=== PATIENT | male | born 1940 | race Caucasian/White ===

== ENCOUNTER 2019-04-25 01:42 | Inpatient (IN) | payer MEDICARE, BC, SELFPAY ==
[2019-04-25] VITALS (15 sets, daily range): BP systolic 129–203; BP diastolic 66–87; PULSE 71–80; RESP 16–18; TEMP 36.2–37.4; O2SAT 93–100; BMI 23.5; BMI 23.7
--- NOTE | 2019-04-25 02:03 | CT_ITS ---
STUDY: CT ABDOMEN AND PELVIS WITHOUT CONTRAST REASON FOR EXAM: Male, 78 years old. Right flank pain. Known kidney stones which were found on Tuesday. Patient is scheduled for surgery on 05/09/2019. RADIATION DOSAGE (If Supplied By Facility): CTDIvol = ( 6.08 ) mGy, DLP = ( 299.27 ) mGycm TECHNIQUE: Transaxial images were obtained from the dome of the diaphragm to the symphysis pubis without oral contrast, and without intravenous contrast. Sagittal and coronal images were reconstructed. Individualized dose optimization techniques were used for this CT. COMPARISON: None. No previous studies or reports of previous studies are available for comparison at the time of this reading. FINDINGS: There is mild atelectasis in the visualized posterior lung bases. The visualized portions of the heart are within normal limits. There are sternotomy wires and surgical clips suggesting previous CABG. Normal liver. Normal gallbladder and extrahepatic biliary system. Normal spleen. Normal pancreas. Normal bilateral adrenal glands. As seen on axial images 141-143, there is a 4 mm wide distal right femoral calculus at the ureterovesical junction. There is associated right perinephric and right periureteral fat infiltration. There appears to be prominent peripelvic cysts in the right kidney. I suspect that mild or moderate hydronephrosis is present, however, presence of the cysts prevents reliable assessment for hydronephrosis. Comparison studies or delayed contrast-enhanced images would be necessary to reliably assess hydronephrosis in this patient. There are 2 nonobstructive right lower pole renal calculi, the larger of which measures 3 mm. There are prominent peripelvic cysts in the left kidney. There is no demonstrated left renal or ureteral calculus. Hydronephrosis left kidney is thought to be unlikely but cannot be entirely excluded. There is a small hiatal hernia. Normal small intestine. There is prominent colonic and rectal feces which may represent constipation. The appendix is visualized on axial images 103-113 and it appears normal. There is diffuse atherosclerotic calcification of the abdominal aorta, without a demonstrated aneurysm. Normal inferior vena cava. There is no demonstrated retroperitoneal lymphadenopathy. There is a 1.1 cm urinary bladder calculus. Prostate gland is enlarged and indents the base of the urinary bladder. Otherwise, normal appearing bladder. There is a small umbilical hernia containing fat but no bowel. There are mild degenerative changes of the visualized lumbar spine. CT/Abdomen/Pelvis without Cont IMPRESSION: 4 mm wide distal right ureteral calculus at the UVJ. There is right perinephric fat infiltration and I suspect that there is mild or moderate hydronephrosis of the right kidney. Reliable assessment of hydronephrosis cannot be made in this noncontrast study due to presence of peripelvic cysts. Small nonobstructive right lower pole renal calculi. 1.1 cm urinary bladder calculus. Enlarged prostate. Small hiatal hernia. Atherosclerosis. Suggestion of constipation. No evidence for appendicitis or diverticulitis. Electronically Signed: Jhonatan Obregon MD at 3:00 EST , Service support ,
--- NOTE | 2019-04-25 02:05 | ED.DCSUM_ITS ---
History of Present Illness Chief Complaint: Abd Pain Narrative: Patient is a 78-year-old male who presents with severe right flank and right lower quadrant abdominal pain. He rates this as 13 out of 10. His pain initially began Tuesday morning. He was seen at [facility] emergency department at that time and diagnosed with a distal right ureteral calculus. He was prescribed etodolac and had hydrocodone at home. He was advised to follow-up with Dr. Baron- urology. He did follow-up as an outpatient. His pain was controlled at that time. He was scheduled for surgery on May 09. However he developed recurrent abdominal pain yesterday afternoon which that improved but returned severely about an hour ago. He reports nausea without vomiting. No fevers. No dysuria. Past Medical History - Allergies and Home Meds Allergies/Adverse Reactions: Allergies No Known Allergies Allergy (Verified 04/25/19 01:53) Primary Care Physician: Ciro Townsend, [employer] DATA ANALYST-C [Primary Care Provider] - Past Medical History: - - Coronary artery disease Surgical History: coronary bypass surgery Smoking Status: Never smoker Review of Systems All systems negative except as indicated General: Denies: Fever Eyes: Denies: Visual changes - bilaterally ENT: Denies: Bilateral ear pain Cardiovascular: Denies: Chest pain Respiratory: Denies: Dyspnea Gastrointestinal: Reports: Abdominal pain, Nausea. Denies: Vomiting Genitourinary: Denies: Dysuria Musculoskeletal: Denies: Myalgias Skin: Denies: Rash Neurological: Denies: Headache Allergy: Denies: Uticaria Physical Exam Vital Signs/Narrative: Vital Signs Temp Pulse Resp BP Pulse Ox 04/25/19 01:45 97.7 F L 71 16 203/87 H 100 Inital Vital Signs reviewed: Yes General: Well nourished, Acute Distress Head: Normocephalic Eyes: EOMI ENT: Moist mucous membranes Neck: Supple Cardiovascular: Regular rate, Regular rhythm Respiratory: No distress, CTA bilaterally Abdomen: Soft, Tender - Right lower quadrant/right flank/right CVA tenderness Back: CVA tenderness Extremities: Nontender Skin: Normal color Neurological: Alert Psychological: Normal affect Diagnostic/Tx/Re-eval - Medical Decision Making Family did bring a copy of the CT report which showed a 5 mm distal right ureteral calculus as well as right nephrolithiasis. Patient was symptomatically treated with fluids, Toradol, morphine, Zofran. On reevaluation the patient has moderate reduction of his pain to 5 out of 10. He is concerned if he goes home his pain will again be uncontrolled. Laboratory studies and imaging as above notable for distal right ureteral calculus and probably mild to moderate hydronephrosis although limited due to the presence of peripelvic renal cysts. Urinalysis shows ketones and RBCs. I did speak to urology who agrees to admit with plan for intervention. ED Disposition - Plan for ED Patient: Disposition: Acute Care Hospital [facility] Diagnosis: Ureterolithiasis Referrals: Ciro Townsend, SAP DATA ANALYST-C [Primary Care Provider] -
[2019-04-25] MEDS: 0.9% Normal Saline 1,000 ML 999 ML IV (02:16)
[2019-04-25] MEDS: Ondansetron 4 MG/2 ML Vial IV (02:17)
[2019-04-25] MEDS: Ketorolac 30 MG/ML Syringe 15 MG IV (02:17)
[2019-04-25] MEDS: Morphine 4 MG/ML Syringe IV (02:19)
[2019-04-25 02:29] LABS: Absolute Lymphocyte Count 0.73 X10^3/uL (0.83-4.51); Absolute Neutrophil Count 6.3 X10^3/uL (2.0-7.7); Basophil# 0.02 X10^3/uL; Basophil% 0.3 % (0-1); Eosinophil# 0.08 X10^3/uL; Hemoglobin 13.9 g/dL (13.0-16.5); Lymphocyte # 0.73 X10^3/ul (4.0); Lymphocyte % 9.3 % (19-41); Mean Corp Hgb Conc 33.9 g/dL (32-36); Mean Corpuscular Hgb 32.3 pg (27.0-32.0); Mean Corpuscular Volume 95.1 fL (80-94); Mean Platelet Vol. 8.9 fl (6.2-12.0); Monocyte# 0.74 X10^3/uL; Monocyte% 9.4 % (0-10); NRBC Flagged by Analyzer 0 % (0-5); Neutrophil % 79.7 % (47-70); Platelet Count 124 K/mm3 (150-450); RBC Distribution Width CV 12.2 % (11.6-14.6); RBC Distribution Width SD 42.7 fl (35.1-43.9); Red Blood Count 4.31 M/mm3 (4.6-6.2); White Blood Count 7.9 K/mm3 (4.4-11.0)
[2019-04-25 02:51] LABS: Color, Urine Yellow (Yellow); Glucose, Dipstick 50 mg/dl (Normal); Leukocyte Esterase-Dipstick Negative /ul (Negative); Nitrite-Dipstick Negative (Negative); Occult Blood-Urine 50 /ul (Negative); Protein-Dipstick Negative (Negative); Squamous Epithelial Cells - UA 0 SEEN /hpf (0-5); Urine Bilirubin Dipstick Negative (Negative); Urine Clarity Clear (Clear); Urine Urobilinogen 1 mg/dl (Normal); Urine pH 6.5 (5.0 - 8.0); White Blood Cells 0 SEEN /hpf (0-5)
[2019-04-25 02:59] LABS: Ketone-Dipstick 150 mg/dl (Negative)
[2019-04-25 03:00] LABS: Bacteria RARE /hpf (None Seen); Mucous, Urine RARE /hpf (<or=2+); Red Blood Cells-Urine 5-10 SEEN /hpf (0-5)
--- NOTE | 2019-04-25 03:00 | ED.RN ---
lab called urine ketones of 150. dr. donohue made aware.
[2019-04-25 03:03] LABS: Anion Gap 8 (5-15); BUN 30 mg/dL (7-18); BUN/Creat Ratio 24.2 RATIO (10-20); Calcium,Total 8.7 mg/dL (8.5-10.1); Chloride 107 mmol/L (98-107); Creatinine, Serum 1.24 mg/dL (0.70-1.30); EST Glomerular Filtration Rate 60 mL/min (>60); Est Glom Filt Rate - Afr Amer 72 mL/min (>60); Estimated Creatinine Clearance 46.73 ml/min; Glucose 119 mg/dL (74-106); Potassium 3.9 mmol/L (3.5-5.1); Sodium Level 141 mmol/L (136-145)
[2019-04-25] MEDS: 0.9% Normal Saline 1,000 ML 75 ML IV (04:48)
--- NOTE | 2019-04-25 05:55 | EKG12_ITS ---
Test Reason : AM EKG Blood Pressure : / mmHG Vent. Rate : 070 BPM Atrial Rate : 070 BPM P-R Int : 230 ms QRS Dur : 090 ms QT Int : 422 ms P-R-T Axes : 071 066 048 degrees QTc Int : 455 ms Sinus rhythm with 1st degree A-V block with Premature supraventricular complexes Otherwise normal ECG No previous ECGs available Confirmed by JUSTYNA BILLINGSLEY ([id number]), make up editor MURPHY FANG ([id number]) on 04/27/2019 11:51:40 AM Referred By: PETRONA Confirmed By:JUSTYNA BILLINGSLEY
[2019-04-25 06:36] LABS: Absolute Neutrophil Count 5.5 X10^3/uL (2.0-7.7); Basophil# 0.02 X10^3/uL; Basophil% 0.3 % (0-1); Eosinophil# 0.02 X10^3/uL; Eosinophils% 0.3 % (0-5); Hematocrit 37.7 % (40-54); Hemoglobin 12.5 g/dL (13.0-16.5); Lymphocyte % 8.8 % (19-41); Mean Corp Hgb Conc 33.2 g/dL (32-36); Mean Corpuscular Hgb 31.8 pg (27.0-32.0); Mean Corpuscular Volume 95.9 fL (80-94); Mean Platelet Vol. 9.2 fl (6.2-12.0); Monocyte# 0.62 X10^3/uL; Monocyte% 9.1 % (0-10); NRBC Flagged by Analyzer 0 % (0-5); Neutrophil % 80.9 % (47-70); POSITIVE DIFFERENTIAL YES; Platelet Count 119 K/mm3 (150-450); RBC Distribution Width CV 12.2 % (11.6-14.6); RBC Distribution Width SD 43.2 fl (35.1-43.9); Red Blood Count 3.93 M/mm3 (4.6-6.2); White Blood Count 6.8 K/mm3 (4.4-11.0)
[2019-04-25 06:52] LABS: Anion Gap 5 (5-15); BUN 26 mg/dL (7-18); BUN/Creat Ratio 28.4 RATIO (10-20); Chloride 111 mmol/L (98-107); Creatinine, Serum 0.92 mg/dL (0.70-1.30); EST Glomerular Filtration Rate 85 mL/min (>60); Est Glom Filt Rate - Afr Amer 102 mL/min (>60); Estimated Creatinine Clearance 62.99 ml/min; Glucose 113 mg/dL (74-106); Potassium 4.2 mmol/L (3.5-5.1); Sodium Level 141 mmol/L (136-145)
[2019-04-25 07:18] LABS: Differential Indicated SCAN CRITERIA MET
[2019-04-25 07:19] LABS: Differential Comment SCANNED
--- NOTE | 2019-04-25 07:28 | HP.PCM_ITS ---
History and Physical Date of Admission: 04/25/19 New patient, 78-year-old male relatively healthy recently had severe pain in the right side CAT scan was done at demonstrated a large stone in his bladder and also a 5 mm stone in the distal right ureter. I saw the patient in the office yesterday and we were planning for surgery for his kidney stone and bladder stone he now presents the emergency room with right severe flank pain that was intractable in nature. Patient wishes to be admitted to have the stone resolved surgically so he will be admitted for ureteroscopy and laser of the right ureteral stone and also the bladder stone. Probably could be discharged after the procedure. 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 Tobacco Use Assessment Completed: Used Tobacco in last 30 days? Smoking cessation counseling was provided. Does not use smokeless tobacco. Social Drinker. Does not use drugs. Does not drink caffeine. Has not had a blood transfusion. Patient's occupation is/was retired. REVIEW OF SYSTEMS: Constitutional: Patient denies fever, chills, weight loss, and weight gain. Eyes: Patient reports cataracts. Patient denies blurry vision and glaucoma. Ears, Nose, Mouth, Throat: Patient denies hearing loss, sinus infections, and sleep apnea. Cardiovascular: Patient reports chest pains. Patient denies swollen ankles, irregular heartbeat, and pacemaker/defib. Respiratory: Patient denies shortness of breath, wheezing, oxygen, and cpap machine. Gastrointestinal: Patient denies abdominal pain, diarrhea, constipation, nausea, and vomiting. Genitourinary: Patient reports history of stones. Patient denies painful urination, urinary retention, bedwetting, weak stream/scanty, frequent urinatio n, frequent uti's, leakage of urine, difficulty starting stream, get up at night to void, and blood in the urine. Musculoskeletal: Patient denies sore muscles, back pain, and gout. Integumentary/Skin: Patient reports skin cancer. Patient denies rash and chronic itching. Neurological: Patient denies falling/unsteady, paralysis, and stroke/tia. Hematologic/Lymphatic: Patient denies abnormal bleeding, blood transfusion, swollen lymph nodes, deep venous thrombosis, and pulmonary embolism. VITAL SIGNS: 04/24/2019 09:10 AM Weight 150 lb / 68.04 kg Height 68 in / 172.72 cm BP 132/68 mmHg BMI 22.8 kg/m? - BMI Counseling was provided. PHYSICAL EXAMINATION: Anus and Perineum: No hemorrhoids. No anal stenosis. No rectal fissure, no anal fissure. No edema, no dimple, no perineal tenderness, no anal tenderness. Scrotum: No lesions. No edema. No cysts. No warts. Epididymides: Right: no spermatocele, no masses, no cysts, no tenderness, no induration, no enlargement. Left: no spermatocele, no masses, no cysts, no tenderness, no induration, no enlargement. Testes: No tenderness, no swelling, no enlargement left testes. No tenderness, no swelling, no enlargement right testes. Normal location left testes. Normal location right testes. No mass, no cyst, no varicocele, no hydrocele left testes. No mass, no cyst, no varicocele, no hydrocele right testes. Urethral Meatus: Normal size. No lesion, no wart, no discharge, no polyp. Normal location. Penis: Circumcised, no warts, no cracks. No dorsal Peyronie's plaques, no left corporal Peyronie's plaques, no right corporal Peyronie's plaques, no scarring, no warts. No balanitis, no meatal stenosis. Prostate: Prostate about 50 grams. Left lobe normal consistency, right lobe normal consistency. Symmetrical lobes. No prostate nodule. Left lobe no tenderness, right lobe no tenderness. Seminal Vesicles: Nonpalpable. Sphincter Tone: Normal sphincter. No rectal tenderness. No rectal mass. MULTI-SYSTEM PHYSICAL EXAMINATION: Constitutional: Well-nourished. No physical deformities. Normally developed. Good grooming. Neck: Neck symmetrical, not swollen. Normal tracheal position. Respiratory: No labored breathing, no use of accessory muscles. Cardiovascular: Normal temperature, normal extremity pulses, no swelling, no varicosities. Lymphatic: No enlargement of neck, axillae, groin. Skin: No paleness, no jaundice, no cyanosis. No lesion, no ulcer, no rash. Neurologic / Psychiatric: Oriented to time, oriented to place, oriented to person. No depression, no anxiety, no agitation. Gastrointestinal: No mass, no tenderness, no rigidity, non obese abdomen. Eyes: Normal conjunctivae. Normal eyelids. Ears, Nose, Mouth, and Throat: Left ear no scars, no lesions, no masses. Right ear no scars, no lesions, no masses. Nose no scars, no lesions, no masses. Normal hearing. Normal lips. Musculoskeletal: Normal gait and station of head and neck. PAST DATA REVIEWED: Source Of History: Patient Lab Test Review: PSA Records Review: Previous Patient Records Urine Test Review: Urinalysis PROCEDURES: Urinalysis - [address] Dipstick Dipstick Cont'd Specimen: Voided Blood: about 250 Appearance: Clear pH: 5.0 Color: Yellow Protein: Neg Glucose: Normal Urobilinogen: Neg Bilirubin: Neg Nitrites: Neg Ketones: Neg Leukocyte Esterase: Neg ASSESSMENT: ICD-10 Details 1 : Calculus in bladder - N21.0 2 Benign prostatic hyperplasia with lower urinary tract symptoms - N40.1 3 Calculus of ureter - N20.1 PLAN: Medications New Meds: Flomax 0.4 mg capsule 1 capsule PO Q HS #90 3 Refill(s) Schedule Procedure: Unspecified Date - Cysto Uretero Lithotripsy - 71732, right Procedure: Approximately 2 Weeks - Cysto Bladder Stone >2.5cm - 72162 Document Letter(s): Created for Patient: Clinical Summary Notes: 78-year-old male with a large prostate and a large bladder stone, plan to proceed with surgery with a cystoscopy and laser removal the bladder stone also perform a right ureteroscopy and laser the stone in the distal right ureter.
[2019-04-25] MEDS: 0.45% Normal Saline 1,000 ML 75 ML IV (07:59)
--- NOTE | 2019-04-25 10:30 | CASEMGMT ---
RN CM Face to Face with patient for initial transition planning/care coordination assessment. RN CM introduced self and role at [facility]. Patient lying in bed, alert and oriented, at bedside. Patient willing to participate in assessment and is able to answer all questions appropriately. Care providers, pharmacy, and demographics verified. Patient wishes to discharge home, denies need for home health at this time. Patient states he has no further needs or concerns at this time. CM to follow for discharge planning needs that may arise. PCP: KASSY Townsend Specialists: [employer] Operator Amanda Pharmacy: [facility] Insurance: [employer] Prescription Benefit: yes Living Will/HPOA: yes, Aylin French LNOK: Living Arrangements: Patient lives with in split level home with 5-6 steps with railings. Patient is independent at home. Transportation: self/ DME/HHC: Patient denies need for DME or HHC. Disposition Plan: Patient to discharge home with family support and follow-up plans in place. Sadia CANON, RN, CM
--- NOTE | 2019-04-25 13:52 | NURSING ---
report called to [place] in AC at this time. pt transported down via bed with IV pump and pre-op antibiotic.
--- NOTE | 2019-04-25 14:20 | DCINST_ITS ---
Discharge Diet: Light diet - advance as tolerated Discharge Activity: Return to Normal Activity Call your doctor if you observe: Fever of 101 or Higher Suture Line Care: Avoid Pulling/Pushing, Avoid Pinching/Bending Instructions: Treating Kidney Stones: Ureteroscopic Stone Removal Allergies/Adverse Reactions: Allergies No Known Allergies Allergy (Verified 04/25/19 01:53) Medications to take at Discharge Aspirin 81 mg PO DAILY 04/25/19 Atenolol 0.5 tab PO DAILY 04/25/19 Ciprofloxacin [Cipro] 500 mg PO BID #6 tab 04/25/19 Etodolac 1 tab PO DAILY 04/25/19 Hydrocodone/Acetaminophen [Hydrocodon-Acetaminophen 5-325] 1 ea PO Q6H PRN PRN 04/25/19 Hydrocodone/Acetaminophen [[place] 5-325 Tablet] 1 ea PO Q4H PRN PRN 5 Days #14 tab 04/25/19 Omeprazole 20 mg PO DAILY 04/25/19 Ondansetron [Ondansetron Odt] 1 tab PO TID 04/25/19 Phenazopyridine HCl [Pyridium] 100 mg PO TID #14 tab 04/25/19 Tamsulosin HCl 0.4 mg PO DAILY 04/25/19 The following prescriptions were given: Ciprofloxacin [Cipro] 500 mg PO BID #6 tab Prescription Printed Hydrocodone/Acetaminophen [[place] 5-325 Tablet] 1 ea PO Q4H PRN PRN 5 Days #14 tab PRN Reason: Pain Score 1-10/10 Prescription Printed Phenazopyridine HCl [Pyridium] 100 mg PO TID #14 tab Prescription Printed Primary Care Physician: Ciro Townsend, [employer]-C [Primary Care Provider] - Test Results: Test results from this visit will be discussed in further detail at your follow- up appointment, if applicable. Please Follow Up With: Derian Baron MD When: please call to make an appointment.
[2019-04-25] MEDS: Cefazolin 2 GM in 0.9% Normal Saline 100 ML IV (14:32)
[2019-04-25] MEDS: Lactated Ringers 1,000 ML 100 ML IV (14:37)
--- NOTE | 2019-04-25 15:11 | PCM.OPRPT ---
Report of Operation Date of Procedure: 04/25/19 Pre-Operative Diagnosis: Right ureteral calculi distal. Large bladder stone 3 cm Post-Operative Diagnosis: The same Surgery/Procedure Performed:: Cystoscopy, balloon dilation of the right ureter, ureteroscopy, retrograde pyelogram, interpretation of fluoroscopic images, basement of the stent, cystoscopy and laser of bladder stone about 3 cm in size. Evacuation of all stone fragments. Description of Surgical Findings:: 78-year-old male was taken back to the operating room after smooth induction of anesthesia he was placed in dorsolithotomy position went into the bladder with a 21 Indonesian rigid cystourethroscope the entire length urethra is normal pendulous urethra normal bulbar urethra normal sphincter was intact he had a verumontanum was normal he did have a high riding bladder neck and bilateral hypertrophy once inside the bladder there is a stone in the trigone area that was seen in the trigone area he was passing a stone in the distal right ureter on the fluoroscopy hard to tell because still see the stone, cannulated the right ureter with a Glidewire advance a wire up to the kidney over the guidewire I then balloon dilated distal right ureter with a 12 Indonesian 10 cm balloon dilator I then attempted to perform ureteroscopy went into the ureter but could only only guilt go up about a centimeter and then it was too tight and could not go beyond a centimeter so into the ureter attempted with another scope was still not successful so therefore I decided just to place a stent since I was not able to get the stent the ureter easily and I backloaded the scope and advanced a stent up on the right side was a stent was a good position I called in the bladder and kidney good position and the stent was deployed I then used a 270 ?m laser fiber and the stone that was in the dependent portion of the bladder and the trigone was laser little tiny pieces and the piece fragments were then passed out of the bladder. Once all the pieces from the bladder stone were removed that I drained the bladder patient anesthetic was reversed taken back to PACU good condition plan to see him next week for checkup probably get a CAT scan to see if the stone is still there, but not will just pull on the stent, if the stone is still there with a set him up for the second for ureteroscopy to go after that stone. Type of Anesthesia:: General Drains: stent - Admit VTE Documentation VTE Present on Admission: No VTE Mechan Device Prophylaxis: SCD's
[2019-04-25] MEDS: Ketorolac 15 MG/ML Vial IV (16:11)
[2019-04-25] MEDS: Tamsulosin HCl 0.4 MG Capsule PO (18:41)
[2019-04-25] MEDS: Atenolol 25 MG Tablet PO (18:48)
--- NOTE | 2019-04-25 21:40 | NURSING ---
Pt c/o sudden sharp pain 10/10 with urination and then resolves once he lies back down again. Just voided 150cc dark red urine with 0.5cm blood clot noted. Bladder scanned for 20cc. Paged Dr Baron and made him aware of above. States to give pt 200mg Pyridium and then ok to dc. Communicated with pt and his .
[2019-04-25] MEDS: Phenazopyridine 95 MG Tablet 190 MG PO (22:15)
== END 2019-04-25 22:34 | disposition home or self-care (01) | DRG 661 ==
LOC: ED 03:23 → MS3 03:34
PROVIDERS: Anesthesiology; Admitting Provider Urology; Emergency Provider Emergency Medicine; Family Provider Nurse Practitioner Family; PCP Nurse Practitioner Family; Visit Provider Urology
PROC: 0TJ98ZZ Inspection of Ureter, Via Natural or Artificial Opening Endoscopic (ICD-10-PCS; CPT 52352; principal; 2019-04-25 08:20)
DX: N21.0 Calculus in bladder (principal); N20.1 Calculus of ureter; I25.10 Atherosclerotic heart disease of native coronary artery without angina pectoris; N40.1 Benign prostatic hyperplasia with lower urinary tract symptoms; K21.9 Gastro-esophageal reflux disease without esophagitis; Z87.442 Personal history of urinary calculi; Z95.1 Presence of aortocoronary bypass graft; Z79.82 Long term (current) use of aspirin; Z79.899 Other long term (current) drug therapy
CPT/HCPCS: 36415; 74176; 76000; 80048; 81001; 85025; 93005; 99285; J7030; J7120; A4216; C1769; C2617; J2405

== ENCOUNTER → 2019-05-03 15:37 | Outpatient (CLI) | payer MEDICARE, BC, SELFPAY ==
[2019-04-25 13:47] VITALS: BMI 23.7
--- NOTE | 2019-05-03 15:39 | CT_ITS ---
STUDY: CT ABDOMEN AND PELVIS WITHOUT CONTRAST REASON FOR EXAM: Male, 78 years old. Right flank pain RADIATION DOSAGE (If Supplied By Facility): CTDIvol = ( 7.98 ) mGy, DLP = ( 353.50 ) mGycm TECHNIQUE: Transaxial images were obtained from the dome of the diaphragm to the symphysis pubis without oral contrast, and without intravenous contrast. Sagittal and coronal images were reconstructed. Individualized dose optimization techniques were used for this CT. COMPARISON: 04/25/2019 FINDINGS: The visualized lung bases are unremarkable. The visualized portions of the heart are within normal limits. Normal liver. Normal gallbladder and extrahepatic biliary system. Normal spleen. Normal pancreas. Normal bilateral adrenal glands. There has been interval placement of a right ureteral stent. The superior aspect of which is coiled within an upper pole calyx in the inferior aspect of which is coiled at the ureterovesicular junction. Extensive bilateral peripelvic cysts are identified. The ureters are not distended. There are 2 small nonobstructing right lower pole calyceal stones measuring approximately 2 mm. There is a small hiatal hernia. Normal small intestine. Prominent stool burden within the colon. There is non-visualization of the appendix. There is diffuse atherosclerotic calcification of the abdominal aorta, without a demonstrated aneurysm. Normal inferior vena cava. Normal retroperitoneum. Normal urinary bladder. There is enlargement of the prostate gland. There is a right-sided inguinal hernia containing adipose tissue. Normal osseous structures. CT/Abdomen/Pelvis without Cont IMPRESSION: Right ureteral stent in place as described above. Similar appearance of small nonobstructing right lower pole calyceal stones. Prominent stool burden. Electronically Signed: Deyvi Hopson, at 16:56 EST Tel , Service support ,
== END ==
PROVIDERS: Family Provider Nurse Practitioner Family; PCP Nurse Practitioner Family; Referring Provider Urology; Visit Provider Urology
DX: N20.0 Calculus of kidney (principal)
CPT/HCPCS: 74176

== ENCOUNTER 2019-05-09 09:33 | Day surgery (SDC) | payer MEDICARE, BC, SELFPAY ==
[2019-04-25 13:47] VITALS: BMI 23.7
[2019-05-09 10:03] VITALS: PULSE 85; RESP 15; TEMP 36.6; O2SAT 97; BMI 23.6
[2019-05-09] MEDS: Lactated Ringers 1,000 ML 100 ML IV ×2 (10:14→14:47)
[2019-05-09] MEDS: Cefazolin 2 GM in 0.9% Normal Saline 100 ML IV (13:44)
--- NOTE | 2019-05-09 14:20 | PCM.DC.URO ---
Discharge Diet: Light diet - advance as tolerated Discharge Activity: Return to Normal Activity Call your doctor if your incision/area has: Sudden Increased Bleeding Suture Line Care: Avoid Pulling/Pushing, Avoid Pinching/Bending Instructions: Treating Kidney Stones: Ureteroscopic Stone Removal Allergies/Adverse Reactions: Allergies No Known Allergies Allergy (Verified 05/09/19 09:52) Medications to take at Discharge Aspirin 81 mg PO DAILY 04/25/19 Atenolol 25 mg PO QHS 04/25/19 Hydrocodone/Acetaminophen [[place] 5-325 Tablet] 1 ea PO Q4H PRN PRN 5 Days #14 tab 04/25/19 Omeprazole 20 mg PO QHS 04/25/19 Phenazopyridine HCl [Pyridium] 100 mg PO TID #14 tab 04/25/19 [place]-3 Fatty Acids/Fish Oil [Fish Oil 1,000 mg Capsule] 1 ea PO DAILY 05/08/19 Ciprofloxacin [Cipro] 500 mg PO BID #10 tab 05/09/19 Hydrocodone/Acetaminophen [[place] 5-325 Tablet] 1 each PO Q4H PRN PRN 5 Days #14 tablet 05/09/19 The following prescriptions were given: Ciprofloxacin [Cipro] 500 mg PO BID #10 tab Transmission Status: Pending to [facility] Hydrocodone/Acetaminophen [[place] 5-325 Tablet] 1 each PO Q4H PRN PRN 5 Days #14 tablet PRN Reason: Pain Score 4-10/10 Transmission Status: Sent to [facility] Primary Care Physician: Ciro Townsend, KASSY-C [Primary Care Provider] - Test Results: Test results from this visit will be discussed in further detail at your follow-up appointment, if applicable. Please Follow Up With: Derian Baron MD When: in 2 weeks, please call to make an appointment.
--- NOTE | 2019-05-09 14:23 | PCM.OPRPT ---
Report of Operation Date of Procedure: 05/09/19 Pre-Operative Diagnosis: Right ureteral calculi status post stent placement Post-Operative Diagnosis: The same Surgery/Procedure Performed:: Cystoscopy, right retrograde pyelogram, interpretation fluoroscopic images, right ureteroscopy laser lithotripsy of stone fragment. No stent. Description of Surgical Findings:: 78-year-old male was taken back to the operating room prior procedure he was taken to the surgery for cystoscopy and stent placement on the right at that point we attempted to do ureteroscopy of the ureter was too tight we did laser bladder stone. At this point we come back to the operating room for ureteroscopy and laser the stone in the distal ureter, patient was taken back to the operating room after smooth induction of general anesthesia he was placed in dorsolithotomy position, penis and testicles were prepped and draped in usual sterile fashion. Went into the bladder with a 21 [place] rigid cystourethroscope. 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 I then identified the stent on the right side grabbed the stent pulled out the meatus advance a wire through the stent left the wire in place and then next to the wire went in with a SlimLine ureteroscope went to the entire urethra proximal past the prostate was able to get into the ureter easily this time. I then identified the stone. I used a 200 ?m laser fiber and perform laser lithotripsy of the stone until it broke and will tiny pieces of the pieces and passed into the bladder. I then performed a retrograde pyelogram injecting contrast 10 cc of diluted contrast of the ureter and then wash the contrast drained the contrast drain normally there is no extravasation or injury or trauma to the ureter since the ureter was draining normally stone was out decided not to place another stent. This point we drained the bladder patient acetic was reversed he is taken back to PACU in good condition we will see him back in a few weeks for checkup. Type of Anesthesia:: General Drains: no stent - Admit VTE Documentation VTE Present on Admission: No
--- NOTE | 2019-05-09 14:27 | HP.PCM_ITS ---
History of Present Illness Date of Admission: 05/09/19 Chief Complaint: Right ureteral calculi distal status post stent The patient is a 78 year old male presents for ureteroscopy and laser of stone in the distal right ureter he underwent stent placement on prior procedure. Past Medical History Allergies No Known Allergies Allergy (Verified 05/09/19 09:52) Home Medications: Ambulatory Orders Medication Instructions Recorded Aspirin 81 mg PO DAILY 04/25/19 Atenolol 25 mg PO QHS 04/25/19 Hydrocodone/Acetaminophen [[place] 1 ea PO Q4H PRN PRN 5 Days #14 tab 04/25/19 5-325 Tablet] Omeprazole 20 mg PO QHS 04/25/19 Phenazopyridine HCl [Pyridium] 100 mg PO TID #14 tab 04/25/19 Hooper-3 Fatty Acids/Fish Oil [Fish 1 ea PO DAILY 05/08/19 Oil 1,000 mg Capsule] Ciprofloxacin [Cipro] 500 mg PO BID #10 tab 05/09/19 Hydrocodone/Acetaminophen [[place] 1 ea PO Q4H PRN PRN 5 Days #14 tab 05/09/19 5-325 Tablet] Surgical History: coronary bypass surgery Smoking Status: Never smoker Tobacco Use: Non-smoker VTE Information - Inpt Only VTE Present on Admission: No - Physical Exam Vitals/I&O's: Vital Signs Temp Pulse Resp Pulse Ox 98 F 85 15 97 05/09/19 10:03 05/09/19 10:03 05/09/19 10:03 05/09/19 10:03 Oxygen Delivery Method Room Air Weight: 70.3 kg Body Mass Index (BMI) 23.6 General: Alert, Oriented x3, Cooperative HEENT: Atraumatic, PERRLA, EOMI, Normocephalic Neck: Supple, No JVD, Negative Carotid Bruits Lungs: Clear to auscultation, Normal air movement Cardiovascular: Regular rate, No murmurs Abdomen: Bowel Sounds Present, Soft, Non Tender Extremities: No edema, Capillary Refill Less than 3 Seconds Skin: No rashes, No breakdown Musculoskeletal: No Tenderness to Palpation of Joints or Extremities Neurological: Cranial nerves II-XII grossly intact Psych/Mental Status: Normal Affect, Appropriate Current Medications Acetaminophen (Tylenol) 650 mg PO Q4H PRN PRN PRN Reason: Pain Score 1-5/10 Hydrocodone Bitart/Acetaminophen ([place] 5mg-325mg) 1 - 2 tablet PO Q6H PRN PRN PRN Reason: Pain Score 1-5/10 Lactated Ringer's () 1,000 mls @ 100 mls/hr IV .Q10H PROSPER Last Admin: 05/09/19 10:14 Dose: 100 mls/hr Documented by: Ketorolac Tromethamine (Toradol) 15 mg IV X1 ONE Stop: 05/09/19 14:22 Metoclopramide HCl (Reglan) 10 mg IV X1 PRN PRN Reason: NAUSEA/VOMITING Ondansetron HCl (Zofran) 4 mg IV X1 PRN PRN Reason: NAUSEA Oxycodone HCl (Oxyir) 5 - 10 mg PO Q6H PRN PRN PRN Reason: Pain Score 4-10/10 Assessment/Plan All Active Problems Ureterolithiasis (Acute) Plan for right ureteroscopy and laser lithotripsy of the stone.
[2019-05-09 14:30] VITALS: BP 140/78; BP 156/80; PULSE 74; RESP 14; TEMP 36.6; O2SAT 99
[2019-05-09 14:45] VITALS: BP 140/78; BP 163/89; PULSE 80; RESP 16; O2SAT 98
[2019-05-09] MEDS: Ketorolac 15 MG/ML Vial IV (14:55)
[2019-05-09 15:00] VITALS: BP 140/78; BP 183/93; PULSE 80; RESP 16; TEMP 36.6; O2SAT 99
[2019-05-09 16:05] VITALS: BP 140/78; BP 165/76; PULSE 75; RESP 16; TEMP 36.4; O2SAT 99
== END 2019-05-09 16:33 | disposition home or self-care (01) ==
LOC: SDC 09:33 → AC 09:35
PROVIDERS: Family Provider Nurse Practitioner Family; PCP Nurse Practitioner Family; Referring Provider Urology; Visit Provider Urology
PROC: 0TJ98ZZ Inspection of Ureter, Via Natural or Artificial Opening Endoscopic (ICD-10-PCS; CPT 52352; principal; 2019-05-09 11:40)
DX: N20.1 Calculus of ureter (principal); I25.10 Atherosclerotic heart disease of native coronary artery without angina pectoris; I10 Essential (primary) hypertension; Z95.1 Presence of aortocoronary bypass graft; Z79.82 Long term (current) use of aspirin; Z79.899 Other long term (current) drug therapy
CPT/HCPCS: 00918; 52353; 76000; J7120